=== PATIENT | female | born 1965 | race Caucasian/White ===

== ENCOUNTER → 2016-09-30 | Outpatient (CLI) | payer OTHER ==
[~2016-09-30] MED LIST: ALPRAZOLAM0.5 MG PO; AMITIZA24 MICROGR PO; BACTRIM,SEPT1 TABLET PO; CEPHALEXIN500 MG PO; DICLOFENAC POTA50 MG PO; DIFLUCAN150 MG PO; DOXYCYCLINE HY100 MG PO; FIORICET 50-301 EACH PO; FLUOXETINE HCL20 MG PO; FLUOXETINE HCL40 MG PO; IMITREX100 MG PO; LEVOTHROID50 MCG PO; LEVOTHYROXINE50 MCG PO; LINZESS145 MCG PO; MONTELUKAST SOD10 MG PO; MOTRIN IB200 MG PO; NAPROSYN500 MG PO; NAPROXEN500 M2 PO; NASONEX17 GM BOTH NARES; NORCO 5/3251 TABLET PO; PERCOCET 5/31 TABLET PO; PREMARIN0.625 MG PO; PREMARIN1.25 MG PO; PROAIR HFA8.5 GM IH; PULMICORT FLE180 MCG IH; REQUIP0.25 MG PO; TOPAMAX50 MG PO; TRAMADOL HCL50 MG PO; TRAZODONE HCL50 MG PO; TROKENDI XR200 MG PO; WELLBUTRIN SR100 MG PO; WELLBUTRIN75 MG PO; ZOFRAN ODT4 MG PO; ZYVOX600 MG PO
== END | disposition home or self-care (01) ==
LOC: CDC 12:34
DX: M25.511 Pain in right shoulder (principal); M75.41 Impingement syndrome of right shoulder; M19.011 Primary osteoarthritis, right shoulder; S43.431A Superior glenoid labrum lesion of right shoulder, initial encounter
CPT/HCPCS: 93000

== ENCOUNTER 2016-10-03 22:51 | Emergency (ER) | payer OTHER ==
[~2016-10-03] VITALS: Ht 144.8 cm; Wt 64.1 kg
[~2016-10-03 22:51] MED LIST changes: -FIORICET 50-301 EACH PO; -ZOFRAN ODT4 MG PO
[2016-10-03 23:30] LABS: HEMATOCRIT 43.6 % (36.0-46.0); MCH 31.5 PG (29.0-34.0); MCHC 32.1 G/DL (30.0-36.0); MCV 98.2 FL (83-99); MEAN PLAT.VOLUME 9.7 uM^3 (9.5-12.4); PLATELET COUNT 191 K/uL (156-360); RBC DIS.WIDTH-SD 46.9 % (39-53); RED BLOOD COUNT 4.44 M/uL (3.80-5.20); WHITE BLOOD COUNT 6.1 K/uL (4.1-10.2)
[2016-10-03 23:43] LABS: CHLORIDE 108 mEq/L (99-109); POTASSIUM 4.2 mEq/L (3.7-5.4); SODIUM 143 mEq/L (136-147)
[2016-10-03 23:45] LABS: GLUCOSE 85 mg/dL (70-99)
[2016-10-03 23:46] LABS: ANION GAP 14 MEQ/L (2-14)
[2016-10-03 23:47] LABS: TOTAL BILIRUBIN 0.2 mg/dL (0.0-1.0)
[2016-10-03 23:48] LABS: ALKALINE PHOSPHATASE 68 IU/L (3-129)
[2016-10-03 23:49] LABS: GFR ESTIMATE (CALCULATED) > 59 mL/min/
[2016-10-03 23:50] LABS: UREA NITROGEN (BUN) 24 mg/dL (9-23)
[2016-10-04] LABS: QUANTITATIVE HCG < 4.0 MIU/ML
[2016-10-04] MEDS ORDERED: ZOFRAN ODT4 MG PO (00:56)
[2016-10-04] MEDS ORDERED: FIORICET 50-301 EACH PO (00:56)
[2016-10-04 01:10] VITALS: BP 137/91
== END 2016-10-04 01:13 | disposition home or self-care (01) ==
LOC: EME 22:51
PROVIDERS: Physician Assistant
DX: G43.909 Migraine, unspecified, not intractable, without status migrainosus (principal); J45.909 Unspecified asthma, uncomplicated; Z95.1 Presence of aortocoronary bypass graft
CPT/HCPCS: 70450; 80053; 84702; 85027; 99281; 99284; J1200; J1885; J2765; J7030

== ENCOUNTER → 2016-10-13 | Outpatient (CLI) | payer OTHER ==
[~2016-10-13] MED LIST changes: +ESTRACE1 MG PO; +FIORICET 50-301 EACH PO; +SINGULAIR10 MG PO; +SUMATRIPTAN SU100 MG PO; +TOPAMAX100 MG PO; +XANAX0.25 MG PO; +ZOFRAN ODT4 MG PO; +ZOLOFT100 MG PO
== END | disposition home or self-care (01) ==
LOC: NUC 13:00
DX: R10.11 Right upper quadrant pain (principal)
CPT/HCPCS: 78227; A9537; J0171; J2250; J2795; J2805

== ENCOUNTER 2016-10-14 13:17 | Day surgery (SDC) | payer OTHER ==
[~2016-10-14] VITALS: Ht 144.8 cm; Wt 63.0 kg
[~2016-10-14 13:17] MED LIST changes: -SUMATRIPTAN SU100 MG PO
[2016-10-14] MEDS ORDERED: SUMATRIPTAN SU100 MG PO (13:32)
[2016-10-14] MEDS ORDERED: REQUIP0.25 MG PO (13:34)
[2016-10-14 14:06] VITALS: BP 109/56
[2016-10-14 15:02] LABS: METH RESISTANT S AUREUS PCR NEGATIVE (NEGATIVE)
[2016-10-14 15:04] LABS: PROBE CHECK PASS; SPECIMEN PROCESSING CONTROL PASS
[2016-10-14 17:00] VITALS: BP 120/69
[2016-10-14 18:17] VITALS: BP 110/60
[2016-10-15 15:52] LABS: CHOLINESTERASE 4107 IU/L (2673-6592)
== END 2016-10-14 18:20 | disposition home or self-care (01) ==
LOC: SDC
PROVIDERS: Orthopaedic Surgery Hand Surgery
DX: M75.41 Impingement syndrome of right shoulder (principal); M19.011 Primary osteoarthritis, right shoulder; S43.431A Superior glenoid labrum lesion of right shoulder, initial encounter; J45.909 Unspecified asthma, uncomplicated; E03.9 Hypothyroidism, unspecified; X50.1XXA Overexertion from prolonged static or awkward postures, initial encounter; Y93.K1 Activity, walking an animal; G47.30 Sleep apnea, unspecified; F32.9 Major depressive disorder, single episode, unspecified
CPT/HCPCS: 82480 90; 87641; J0171; J0690; J1100; J2250; J2405; J2795; J3010; J7120